=== PATIENT | male | born 1960 | race Two or more races ===

== ENCOUNTER 2024-03-24 16:46 | Inpatient (IN) | payer OTHER ==
[2024-03-24] MEDS ORDERED: FAMOTIDINE 20 MG/2 ML VIAL IV ONE (17:26)
[2024-03-24] MEDS ORDERED: ONDANSETRON 4 MG/2 ML VIAL ONE (17:26)
[2024-03-24 17:36] LABS: Absolute Basophils 0.1 K/uL (0-0.5); Absolute Eosinophils 0.1 K/uL (0-0.5); Absolute Lymphocytes (CBC) 2.2 K/uL (0.7-4.9); Absolute Monocytes 0.7 K/uL (0.1-1.3); Basophils % 0.4 % (0-1.3); Hematocrit 41.7 % (39.6-49.0); Hemoglobin 13.9 g/dL (13.6-17.9); Lymphocytes % 16.8 % (15.3-44.8); MCH 29.3 pg (27.0-35.0); MCHC 33.3 g/dL (32.0-36.0); Neutrophils % 76.8 % (41.7-73.7); Nucleated Red Blood Cells % 0.1 % (0-0); Platelets 224 thou/uL (152-406); RBC Red Blood Cell Count 4.74 M/uL (4.33-5.43); Red Cell Distribution Width 12.6 % (12.1-15.2)
[2024-03-24 17:48] LABS: PT Prothrombin Time 12.5 SECONDS (9.4-12.5); Protime INR 1.14
[2024-03-24 17:50] LABS: ALT/SGPT 21 U/L (16-61); AST/SGOT 15 U/L (15-37); Albumin 3.6 g/dL (3.4-5.0); Albumin/Globulin Ratio 1.1 (1.1-1.8); Alkaline Phosphatase 80 U/L (45-117); Anion Gap 11.3 mEq/L (5.0-15.0); BUN Blood Urea Nitrogen 13 mg/dL (7-18); Bicarbonate 24 mEq/L (21-32); Bilirubin Total 0.3 mg/dL (0.2-1.0); Globulin 3.4 g/dL (2.3-3.5); Glomerular Filtration Rate 97 ml/min (=/>90); Glucose Level 327 mg/dL (74-106); Magnesium 1.9 mg/dL (1.6-2.4); Potassium 3.3 mEq/L (3.5-5.1); Sodium Level 138 mEq/L (136-145); Troponin High Sensitivity 4.4 pg/mL (<58.9)
[2024-03-24 17:51] LABS: Bilirubin Direct < 0.2 mg/dL (0-0.2); Bilirubin Indirect, Calculated 0.1 mg/dL (0.2-0.8)
[2024-03-24] MEDS ORDERED: HYDRALAZINE HCL 20 MG/ML VIAL ONE (18:25)
[2024-03-24] MEDS ORDERED: POTASSIUM 25 MEQ EFFERV TAB ONE (18:26)
[2024-03-24] MEDS ORDERED: INSULIN REGULAR (HUMAN) 100 UNIT/ML ONE (18:27)
--- NOTE | 2024-03-24 19:21 | RAD REPORT ---
EXAM DESCRIPTION: [place] Single View03/24/2024 6:07 pm CLINICAL HISTORY: Chest pain COMPARISON: none FINDINGS: The lungs appear clear of acute infiltrate. The heart is normal size IMPRESSION: No acute abnormalities displayed
--- NOTE | 2024-03-24 19:23 | RAD REPORT ---
EXAM DESCRIPTION: CT - Head Brain Wo Cont - 03/24/2024 7:02 pm CLINICAL HISTORY: Dizziness COMPARISON: None TECHNIQUE: Computed axial tomography of the head was obtained. IV contrast was not requested. All CT scans are performed using dose optimization technique as appropriate and may include automated exposure control or mA/KV adjustment according to patient size. FINDINGS: An intracranial bleed is not seen Mild prominence of ventricles. Cerebral atrophy present No extra-axial fluid collection is noted. No significant hypodensity the brain. Fluid within the sinuses/ mastoids is not seen. IMPRESSION: Mild prominence of the ventricles probably related to atrophy. Normal pressure hydroceph alus although possible is considered less likely and should be correlated clinically If patient's symptoms persist MRI of the brain would be recommended
[2024-03-24] MEDS ORDERED: DIPHENHYDRAMINE 50 MG/ML VIAL ONE (19:27)
[2024-03-24] MEDS ORDERED: NA CHLORIDE 0.9% 1,000 ML ONE (19:27)
[2024-03-24] MEDS ORDERED: NA CHLORIDE 0.9% 50 ML ONE (19:27)
[2024-03-24] MEDS ORDERED: METOCLOPRAMIDE 10 MG/2mL INJ ONE (19:27)
[2024-03-24 20:53] LABS: Specific Gravity 1.012 (1.005-1.030); Sqamous Epithelial None Seen /HPF (None Seen); Urine Bacteria None Seen /HPF (<20); Urine Bilirubin NEGATIVE (Negative); Urine Blood Negative (Negative); Urine Clarity Clear (Clear); Urine Color Colorless (Yellow); Urine Culture Reflex Order NOT NEEDED; Urine Glucose 4+ (Over) (Negative); Urine Ketones 2+ (Negative); Urine Microscopic Reflex YN ORDER UMIC; Urine Nitrite NEGATIVE (Negative); Urine Protein TRACE (Negative); Urine RBC <5 /HPF (None Seen); Urine Urobilinogen Normal (Normal); Urine WBC <5 /HPF (<5); Urine pH 7.5 (5.0-7.0)
[2024-03-24] MEDS ORDERED: MECLIZINE HCL 12.5 MG TAB ONE (20:53)
--- NOTE | 2024-03-24 22:29 | ER ---
Nurse's Notes [facility] Name: Zohaib Trevino Age: 63 yrs Sex: Male : 1960 Arrival Date: 03/24/2024 Time: 16:46 Bed 15 Private MD: Diagnosis: Dizziness and giddiness;Nausea with vomiting, unspecified Presentation: 03/24 17:14 Chief complaint: Patient states: Pt had sudden onset of dizziness, nausea and vomiting tl4 following a routine tooth extraction at dental office. Pt denies any history of adverse reactions to dental pain/sedation medications. Coronavirus screen: At this time, the client does not indicate any symptoms associated with coronavirus-19. Ebola Screen: No symptoms or risks identified at this time. Initial Sepsis Screen: Does the patient meet any 2 criteria? No. Patient's initial sepsis screen is negative. Does the patient have a suspected source of infection? No. Patient's initial sepsis screen is negative. Risk Assessment: Do you want to hurt yourself or someone else? Patient reports no desire to harm self or others. Onset of symptoms was March 24, 2024 at 15:30. 17:14 Method Of Arrival: EMS: [facility] tl4 17:14 Acuity: BATOOL 3 tl4 Triage Assessment: 17:19 General: Appears ill, Behavior is cooperative, flat. Pain: Denies pain. EENT: No signs tl4 and/or symptoms were reported regarding the EENT system. Neuro: Level of Consciousness is awake, obeys commands, lethargic, Oriented to person, place, time, situation, Moves all extremities. Full function Speech is normal. Neuro: Reports dizziness. Cardiovascular: Denies chest pain, palpitations, shortness of breath, Capillary refill < 3 seconds Patient's skin is warm and dry. Respiratory: Airway is patent Respiratory effort is even, unlabored, Respiratory pattern is regular, symmetrical, Breath sounds are clear bilaterally. GI: Reports nausea, vomiting. : No signs and/or symptoms were reported regarding the genitourinary system. Derm: No signs and/or symptoms reported regarding the dermatologic system. Musculoskeletal: No signs and/or symptoms reported regarding the musculoskeletal system. Historical: - Allergies: 17:17 No Known Allergies; tl4 - Home Meds: 17:17 Metformin Oral [Active]; tl4 - PMHx: 17:17 Diabetes mellitus; Hypertensive disorder; Chronic obstructive lung disease; Atrial tl4 fibrillation; - Immunization history:: Adult Immunizations unknown. - Infectious Disease History:: Denies. - Social history:: Smoking status: Patient/guardian denies using tobacco, the patient reports quitting approximately 18 years ago. Screenin:46 [facility] ED Fall Risk Assessment (Adult) History of falling in the last 3 months, nj1 including since admission No falls in past 3 months (0 pts) Confusion or Disorientation No (0 pts) Intoxicated or Sedated No (0 pts) Impaired Gait No (0 pts) Mobility Assist Device Used No (0 pt) Altered Elimination No (0 pt) Score/Fall Risk Level 0 - 2 = Low Risk Oriented to surroundings, Maintained a safe environment, Hourly rounding (assess needs \T\ fall precautionary measures) done. Abuse screen: Denies threats or abuse. Denies injuries from another. Nutritional screening: No deficits noted. Tuberculosis screening: No symptoms or risk factors identified. Assessment: 17:30 General: Appears ill, Behavior is drowsy, flat. Neuro: Reports dizziness. nj1 17:30 Cardiovascular: Patient's skin is warm and dry. Cardiovascular: Rhythm is sinus rhythm. nj1 Respiratory: Airway is patent Respiratory effort is even, unlabored. GI: Reports nausea. 17:49 Reassessment: Patient appears in no apparent distress at this time. No changes from [facility] previously documented assessment. 18:42 Reassessment: Patient appears in no apparent distress at this time. Patient and/or oh1 family updated on plan of care and expected duration. Pain level reassessed. Patient is alert, oriented x 3, equal unlabored respirations, skin warm/dry/pink. 20:03 Reassessment: Patient appears in no apparent distress at this time. Patient and/or nj1 family updated on plan of care and expected duration. Pain level reassessed. Patient is alert, oriented x 3, equal unlabored respirations, skin warm/dry/pink. 21:12 General: Appears in no apparent distress. ill, Behavior is calm, cooperative, drowsy, kd3 flat. Neuro: Level of Consciousness is awake, alert, obeys commands, Oriented to person, place, time, situation. Respiratory: Airway is patent Trachea midline Respiratory effort is even, unlabored, Respiratory pattern is regular, symmetrical. 21:58 General: Attempted to ambulate patient. PT is extremely unstable and is unable to kd3 ambulate. As soon as the patient sat up to the side of the bed. Pt began to vomit. provider notified. . 22:44 General: [id number] Obdulia Trevino -'s number . kd3 23:43 General: Pt cleaned of incontinence, sheets changed, fresh warm blankets and gown kd3 provided. Pt repeat troponin and covid swab collected and sent. Pt placed back on continuous monitoring. Pt taken to CT via stretcher. Report sent to the floor. . Vital Signs: 17:14 BP 198 / 87; Pulse 79; Resp 19; Temp 97.5(O); Pulse Ox 98% on R/A; Weight 63.5 kg; tl4 Height 5 ft. 8 in. ; Pain 0/10; 17:48 BP 189 / 83; Pulse 83; Resp 22; Pulse Ox 97% on R/A; nj1 18:42 BP 146 / 87; Pulse 77; Resp 17; Pulse Ox 98% on R/A; nj1 20:03 BP 181 / 89; Pulse 82; Resp 19; Pulse Ox 100% on R/A; nj1 21:12 BP 174 / 84; Pulse 79; Resp 18; Pulse Ox 99% on R/A; kd3 22:45 BP 170 / 81; Pulse 63; Resp 19; Pulse Ox 99% on R/A; kd3 23:42 BP 163 / 80; Pulse 76; Resp 16; Pulse Ox 98% on R/A; kd3 17:14 Body Mass Index 21.29 (63.50 kg, 172.72 cm) tl4 17:14 Pain Scale: Adult tl4 ED Course: 16:49 Patient arrived in ED. ec2 16:49 Shahab Contreras PA is PHCP. cp 16:49 Ovidio Das MD is Attending Physician. cp 16:59 Юлия Kitchen, TIN is Primary Nurse. nj1 17:12 Initial lab(s) drawn, by ED staff, sent to lab. EKG done, by ED staff, reviewed by tl4 Shahab RIOS. 17:13 Maintain EMS IV. Dressing intact. Good blood return noted. Site clean \T\ dry. Gauge \T\ tl 4 site: 20g left forearm. IV is patent, with fluids infusing freely, with good blood return, Flushed left forearm 10 mL NS. 17:17 Triage completed. tl4 17:22 Arm band placed on right wrist. tl4 17:47 Patient has correct armband on for positive identification. Bed in low position. Call nj1 light in reach. Provided Education on: CALL LIGHT, FALL PRECAUTIONS. 18:09 XRAY Chest (1 view) In Process Unspecified. EDMS 19:04 CT Head Brain wo Cont In Process Unspecified. EDMS 19:55 Report given to Niurka CASTLE. nj1 22:27 Tom Villa MD is Hospitalizing Provider. cp 23:42 Thyroid Stimulating Hormone Sent. kd3 23:42 Troponin High Sensitivity Sent. kd3 23:44 Repeat lab(s) drawn. by me, sent to lab. COVID swab sent to lab. kd3 Administered Medications: 17:34 Drug: Famotidine IVP 20 mg IVP once; dilute with 10 mL 0.9% NaCl; give over 2 minutes kj2 Route: IVP; Site: left antecubital; 17:36 Drug: Ondansetron IVP 4 mg IVP once; over 2 minutes Route: IVP; Site: left antecubital; kj2 18:45 Drug: Insulin Regular Human Sub-Q 10 units Sub-Q once {Co-Signature: kc6 (rodríguez Canales RN).} Route: Sub-Q; Site: right lower abdomen; 18:48 Drug: Potassium PO Effervescent Tablet 50 mEq PO once; dissolve in 4 ounces of water or nj1 juice Route: PO; 19:14 Not Given (Physician Discretion): [id number] mg IVP once cp 19:36 Drug: NS 0.9% IV 1000 ml IV at 999 ml/hr Per protocol; 1000 mL bolus Route: IV; Rate: kd3 999 ml/hr; Site: left antecubital; 19:36 Drug: metoCLOPramide IVP 10 mg IVP once; over 1 to 2 minutes Route: IVP; Site: left kd3 antecubital; 19:37 Drug: diphenhydrAMINE IVP 12.5 mg IVP once Route: IVP; Site: left antecubital; kd3 20:58 Drug: Meclizine PO 25 mg PO once Route: PO; kj2 Medication: 21:12 VIS not applicable for this client. kd3 Outcome: 22:28 Decision to Hospitalize by Provider. abdirahman 03/25 00:54 Patient left the ED. kd3 Signatures: Dispatcher [employer] EDShahab Pereyra PA PA cp Doucette, Kyli, RN RN kd3 Юлия Kitchen RN RN nj1 Ovidio Das MD MD ec2 Jeremy Newell RN RN tl4 Blanca Dennis RN RN kj2 Tamika Canales RN kc6 Corrections: (The following items were deleted from the chart) 03/24 20:03 20:03 Pulse 82bpm; Resp 19bpm; Pulse Ox 100% RA; nj1 nj1
--- NOTE | 2024-03-24 22:29 | EDPHYS ---
Physician Documentation [facility] Name: Zohaib Trevino Age: 63 yrs Sex: Male : 1960 Arrival Date: 03/24/2024 Time: 16:46 Bed 15 Private MD: ED Physician Ovidio Das HPI: 03/24 17:15 This 63 yrs old [place] Male presents to ER via EMS with complaints of Dizziness, cp Nausea. 17:15 The patient presents to the emergency department with Patient is a 63-year-old male who cp presents to the emergency department via EMS after reportedly having sudden onset nausea vomiting while at the dentist office today. Patient reportedly had a tooth extracted and started vomiting. Patient complains of dizziness and chest pain. 17:15 Onset: The symptoms/episode began/occurred suddenly, just prior to arrival. Associated cp signs and symptoms: Pertinent negatives: fever, syncope. Historical: - Allergies: 17:17 No Known Allergies; tl4 - Home Meds: 17:17 Metformin Oral [Active]; tl4 - PMHx: 17:17 Diabetes mellitus; Hypertensive disorder; Chronic obstructive lung disease; Atrial tl4 fibrillation; - Immunization history:: Adult Immunizations unknown. - Infectious Disease History:: Denies. - Social history:: Smoking status: Patient/guardian denies using tobacco, the patient reports quitting approximately 18 years ago. ROS: 17:20 Constitutional: Negative for body aches, chills, fever, cp 17:20 Eyes: Negative for injury, pain, redness, and discharge, cp 17:20 ENT: Negative for drainage from ear(s), ear pain, 17:20 Cardiovascular: Positive for chest pain, 17:20 Respiratory: Negative for cough, shortness of breath, wheezing, 17:20 Abdomen/GI: Positive for nausea and vomiting, Negative for hematemesis, 17:20 Neuro: Positive for dizziness, weakness, Negative for headache, syncope, 17:20 All other systems are negative, Exam: 16:59 ECG was reviewed by the Attending Physician. cp 17:25 Constitutional: The patient appears in no acute distress, alert, awake, cp non-diaphoretic, non-toxic, well developed, well nourished, 17:25 Head/Face: Normocephalic, atraumatic. cp 17:25 Eyes: Periorbital structures: appear normal, Pupils: equal, round, and reactive to light and accomodation, Sclera: no appreciated abnormality, Lids and lashes: appear normal, bilaterally, 17:25 ENT: External ear(s): are unremarkable, Nose: is normal, Mouth: Lips: moist, Oral mucosa: moist, Posterior pharynx: Airway: no evidence of obstruction, patent, 17:25 Chest/axilla: Inspection: normal, 17:25 Cardiovascular: Rate: normal, Rhythm: regular, 17:25 Respiratory: the patient does not display signs of respiratory distress, Respirations: normal, no use of accessory muscles, no retractions, labored breathing, is not present, Breath sounds: are clear throughout, no decreased breath sounds, no stridor, no wheezing, 17:25 Abdomen/GI: Inspection: abdomen appears normal, Palpation: abdomen is soft and non-tender, in all quadrants, 17:25 Neuro: Orientation: to person, place \T\ time. Mentation: able to follow commands, Motor: moves all fours, no focal deficits, Vital Signs: 17:14 BP 198 / 87; Pulse 79; Resp 19; Temp 97.5(O); Pulse Ox 98% on R/A; Weight 63.5 kg; tl4 Height 5 ft. 8 in. ; Pain 0/10; 17:48 BP 189 / 83; Pulse 83; Resp 22; Pulse Ox 97% on R/A; nj1 18:42 BP 146 / 87; Pulse 77; Resp 17; Pulse Ox 98% on R/A; nj1 20:03 BP 181 / 89; Pulse 82; Resp 19; Pulse Ox 100% on R/A; nj1 21:12 BP 174 / 84; Pulse 79; Resp 18; Pulse Ox 99% on R/A; kd3 22:45 BP 170 / 81; Pulse 63; Resp 19; Pulse Ox 99% on R/A; kd3 23:42 BP 163 / 80; Pulse 76; Resp 16; Pulse Ox 98% on R/A; kd3 17:14 Body Mass Index 21.29 (63.50 kg, 172.72 cm) tl4 17:14 Pain Scale: Adult tl4 MDM: 22:28 Patient medically screened. cp 22:30 Data reviewed: vital signs, nurses notes, lab test result(s), EKG, radiologic studies, cp CT scan. 22:30 Differential diagnosis: CVA, vertigo, acute AR. Consideration of Admission/Observation cp Patient was admitted/placed on observation. patient continues to have dizziness and is unsteady when ambulating. I considered the following discharge prescriptions or medication management in the emergency department Medications were administered in the Emergency Department. See MAR. Care significantly affected by the following chronic conditions: Diabetes, Hypertension, Chronic Obstructive Pulmonary Disease. Counseling: I had a detailed discussion with the patient and/or guardian regarding the historical points, exam findings, and any diagnostic results supporting the discharge/admit diagnosis, the presence of at least one elevated blood pressure reading (>120/80) during this emergency department visit, lab results, radiology results, the need for further work-up and treatment in the hospital. Response to treatment: the patient's symptoms have mildly improved after treatment. 03/24 17:09 Order name: Basic Metabolic Panel; Complete Time: 17:52 03/24 17:52 Interpretation: Normal except: K 3.3; GLUC 327. 03/24 17:09 Order name: CBC with Diff; Complete Time: 17:52 03/24 19:56 Interpretation: Normal except: WBC 13.10; DILLAN% 76.8; NEUT A 10.0. 03/24 17:09 Order name: LFT's; Complete Time: 17:52 03/24 19:57 Interpretation: Normal except: IBILI, CALC 0.1. 03/24 17:09 Order name: Magnesium; Complete Time: 17:52 03/24 17:09 Order name: PT-INR; Complete Time: 17:52 03/24 17:09 Order name: Troponin HS; Complete Time: 17:52 03/24 19:59 Order name: Urinalysis w/ reflexes; Complete Time: 20:55 cp 03/24 20:55 Interpretation: Normal except: UGLUC 4+ (Over); UKET 2+; UPH 7.5; UPROT TRACE. 03/24 21:16 Order name: Glucose, Ancillary Testing; Complete Time: 21:17 EDMS 03/24 22:03 Order name: Troponin High Sensitivity 03/24 22:42 Order name: COVID-19/FLU A+B/RSV EDMS 03/24 22:42 Order name: Thyroid Stimulating Hormone EDUT 03/24 22:56 Order name: CBC with Automated Diff EDMS 03/24 22:56 Order name: CBC with Automated Diff EDMS 03/24 22:56 Order name: Comprehensive Metabolic Panel EDUT 03/24 22:56 Order name: Comprehensive Metabolic Panel EDUT 03/24 22:56 Order name: Lipid Profile EDUT 03/24 22:56 Order name: Lipid Profile EDUT 03/24 17:09 Order name: XRAY Chest (1 view); Complete Time: 19:30 cp 03/24 17:54 Order name: CT Head Brain wo Cont; Complete Time: 19:30 cp 03/24 22:02 Order name: CT Neck Angio 03/24 22:39 Order name: Head angio EDUT 03/24 17:09 Order name: EKG; Complete Time: 17:10 cp 03/24 17:09 Order name: Cardiac monitoring; Complete Time: 17:12 cp 03/24 17:09 Order name: EKG - Nurse/Tech; Complete Time: 17:12 cp 03/24 17:09 Order name: IV Saline Lock; Complete Time: 17:12 cp 03/24 17:09 Order name: Labs collected and sent; Complete Time: 17:12 cp 03/24 17:09 Order name: O2 Per Protocol; Complete Time: 17:12 cp 03/24 17:09 Order name: O2 Sat Monitoring; Complete Time: 17:12 cp 03/24 20:56 Order name: Misc. Order: ambulate patient; Complete Time: 21:58 cp EC:59 Rate is 83 beats/min. Rhythm is regular. AR interval is prolonged at 218 msec. QRS cp interval is prolonged at 148 msec. QT interval is prolonged. T waves are Inverted in lead aVR. Interpreted by me. Reviewed by me. Administered Medications: 17:34 Drug: Famotidine IVP 20 mg IVP once; dilute with 10 mL 0.9% NaCl; give over 2 minutes kj2 Route: IVP; Site: left antecubital; 17:36 Drug: Ondansetron IVP 4 mg IVP once; over 2 minutes Route: IVP; Site: left antecubital; kj2 18:45 Drug: Insulin Regular Human Sub-Q 10 units Sub-Q once {Co-Signature: kc6 (Parker, aneudy1 Tamika CASTLE).} Route: Sub-Q; Site: right lower abdomen; 18:48 Drug: Potassium PO Effervescent Tablet 50 mEq PO once; dissolve in 4 ounces of water or nj1 juice Route: PO; 19:14 Not Given (Physician Discretion): [id number] mg IVP once cp 19:36 Drug: NS 0.9% IV 1000 ml IV at 999 ml/hr Per protocol; 1000 mL bolus Route: IV; Rate: kd3 999 ml/hr; Site: left antecubital; 19:36 Drug: metoCLOPramide IVP 10 mg IVP once; over 1 to 2 minutes Route: IVP; Site: left kd3 antecubital; 19:37 Drug: diphenhydrAMINE IVP 12.5 mg IVP once Route: IVP; Site: left antecubital; kd3 20:58 Drug: Meclizine PO 25 mg PO once Route: PO; kj2 Disposition Summary: 03/24/24 22:28 Hospitalization Ordered Notes: Hospitalization Status: Observation cp Provider: Tom Villa cp Location: Telemetry/MedSurg (observation) cp Condition: Stable cp Problem: new cp Symptoms: have improved cp Bed/Room Type: Standard cp Room Assignment: 221(03/24/24 23:11) [facility] Diagnosis - Dizziness and giddiness cp - Nausea with vomiting, unspecified cp Forms: - Medication Reconciliation Form cp - SBAR form cp - Leadership Thank You Letter cp Addendum: 03/30/2024 11:49 I was immediately available for consultation during this patient's visit. I did not e c2 personally see the patient or discuss the patient with the VALE. . Signatures: Dispatcher [employer] EDMS Shahab Contreras PA PA cp Doucette, Kyli, RN RN kd3 Юлия Kitchen RN RN nj1 Ovidio Das MD MD ec2 Soni Kaminski f Jeremy Newell RN RN tl4 Blanca Dennis RN RN kj2 Tamika Canales RN kc6 Corrections: (The following items were deleted from the chart) 03/24 17:10 17:09 BASIC METABOLIC PANEL+C.LAB.BRZ ordered. EDMS EDMS 17:10 17:09 CBC+H.LAB.BRZ ordered. EDMS EDMS 17:10 17:09 HEPATIC FUNCTION+C.LAB.BRZ ordered. EDMS EDMS : 17:09 MAGNESIUM+C.LAB.BRZ ordered. EDMS EDMS 17:09 PROTIME (+INR)+COAG.LAB.BRZ ordered. EDMS EDMS : 17:09 Troponin High Sensitivity+C.LAB.BRZ ordered. EDMS EDMS 23:11 22:28 cp kmf
[2024-03-24] MEDS ORDERED: LABETALOL 20 MG/4ML SYRINGE IV PRN (22:39)
[2024-03-24] MEDS ORDERED: MORPHINE 4 MG/ML SYR IV PRN (22:47)
[2024-03-24] MEDS ORDERED: ALBUTEROL 2.5 MG/3 ML NEB SOL NEB PRN (22:47)
--- NOTE | 2024-03-24 22:47 | P.HP ---
Certification for Inpatient Patient admitted to: Observation With expected LOS: <2 Midnights Patient will require the following post-hospital care: None Practitioner: I am a practitioner with admitting privileges, knowledge of patient current condition, hospital course, and medical plan of care. Services: Services provided to patient in accordance with Admission requirements found in Title 42 Section 412.3 of the Code of Federal Regulations Patient History Date of Service: 03/24/24 Reason for admission: Dizziness History of Present Illness: 61-year-old male with history of hypertension diabetes, COPD, A-fib, who presented to the hospital after developing intermittent dizziness and nausea, as well as vomiting today after going to his dentist office. Patient states he had a tooth extraction done. He is unsure what local anesthetic he was given. Postprocedure he initially felt fine but on getting home he developed onset of the intermittent dizziness. He states he feels unsteady. He denies any vertigo. Vomiting was nonbilious and nonbloody. He presented to the emergency room because of onset of symptoms. On arrival in the ED, EKG shows normal sinus rhythm with listed med changes, vital signs were stable with systolic blood pressure in the 180s over 110s, heart rate in the 70s to 80s, afebrile, satting well on room air. Chest x-ray shows no acute infiltrate, head CT shows: Mild prominence of the ventricles probably related to atrophy. Normal pressure hydrocephalus although possible is considered less likely and should be cor related clinically. Urinalysis unremarkable except for glycosuria, WBC elevated at 13,000 with 75% neutrophilia but no bands, BMP shows elevated glucose of 326, potassium of 3.2 creatinine normal at 0.8. Lactic acid was normal. Patient received Zofran as well as insulin in the ED. No blood pressure medication was given. Repeat blood pressure now elevated in the 190s over 110s. He has been admitted for persistent dizziness unresolving. Home medications list reviewed: No - Past Medical/Surgical History Has patient received pneumonia vaccine in the past: No -: Hypertension -: Diabetes mellitus -: COPD -: A-fib Past Surgical History: Reviewed- Non-Contributory - Family History Family History: Reviewed- Non-Contributory - Social History Smoking Status: Never smoker Smoking therapy provided: No Patient receptive to therapy: No Alcohol use: No CD- Drugs: No Caffeine use: No Place of Residence: Home Review of Systems General: Weakness Gastrointestinal: Nausea, Vomiting Neurological: Weakness Physical Examination - Physical Exam General: Alert, In no apparent distress, Oriented x3 HEENT: Atraumatic, Normocephalic, PERRLA Neck: 2+ carotid pulse no bruit, JVD not distended Respiratory: Clear to auscultation bilaterally, Normal air movement Cardiovascular: Normal pulses, Regular rate/rhythm, Normal S1 S2 Gastrointestinal: Normal bowel sounds, Soft and benign, Non-distended, No tenderness, No masses Musculoskeletal: No clubbing, No swelling Integumentary: No rashes, No breakdown, No significant lesion Neurological: Normal speech, Normal strength at 5/5 x4 extr, Sensation intact, Other (Gait not tested, horizontal nystagmus) External genitalia: No edema, No lesions - Studies Laboratory Data (last 24 hrs) 03/24/24 03/24/24 03/24/24 17:10 17:10 17:10 WBC 13.10 H Hgb 13.9 Hct 41.7 Plt Count 224 PT 12.5 INR 1.14 Sodium 138 Potassium 3.3 L BUN 13 Creatinine 0.89 Glucose 327 H Magnesium 1.9 Total Bilirubin 0.3 AST 15 ALT 21 Alkaline Phosphatase 80 Assessment and Plan - Problems (Diagnosis) (1) Dizziness and giddiness Current Visit: Yes Status: Acute - Plan Impression Persistent dizzinessmay be due to hypertensive urgency versus viral syndrome versus TIA Hypertensive urgencylikely causing dizziness and nausea DM with hyperglycemia History of COPDstable Leukocytosislikely reactive rule out viral infection Plan Will dose labetalol x 1 now for blood pressure control Admit to observation Obtain home meds and adjust for better blood pressure control Obtain MRI of the head in a.m. if the persistent dizziness after improved blood pressure May need neurology evaluation DM with leukocytosisstart gentle IV fluid, insulin sliding scale with Accu-Chek Resume home meds and adjust Leukocytosisunclear etiology, may be reactive Follow with gentle IV fluid Empirical antibiotics for now Obtain COVID and flu swab Full code Dispo possible hospital discharge in the last than 48 hours DVT prophylaxis subcutaneous Lovenox - Advance Directives Does patient have a Living Will: No Does patient have a Durable POA for Healthcare: No Physician Review: Patient Assessed, Agree with Above Assessment and Plan Time Spent Managing Pts Care (In Minutes): 70
[2024-03-25 00:13] LABS: INFLUENZA A NAA NEGATIVE (NEGATIVE); RESPIRATORY SYNCYTIAL VIR NAA NEGATIVE (NEGATIVE); SARS-COV-2 RT PCR NEGATIVE (NEGATIVE)
[2024-03-25 01:19] VITALS: O2SAT 98
[2024-03-25] MEDS: NS KCL 20MEQ 20 MEQ/1,000 ML BAG IV SCH (01:36)
[2024-03-25] MEDS: LABETALOL 20 MG/4ML SYRINGE IV ONE (02:07)
[2024-03-25 02:38] VITALS: BMI 22.5
[2024-03-25] MEDS: HYDRALAZINE HCL 20 MG/ML VIAL IV PRN (05:41)
[2024-03-25] MEDS: ENOXAPARIN 40 MG/0.4 ML SQ SCH (07:41)
[2024-03-25] MEDS: ONDANSETRON 4 MG/2 ML VIAL IV PRN (07:41)
[2024-03-25] MEDS: ASPIRIN EC 81 MG TAB PO SCH (07:41)
[2024-03-25 07:55] LABS: Absolute Lymphocytes (CBC) 2.6 K/uL (0.7-4.9); Absolute Monocytes 1.3 K/uL (0.1-1.3); Absolute Neutrophil 13.1 K/uL (1.8-8.0); Basophils % 0.3 % (0-1.3); Eosinophils % 0.3 % (0-4.4); Hematocrit 41.1 % (39.6-49.0); Hemoglobin 14.1 g/dL (13.6-17.9); MCH 29.6 pg (27.0-35.0); MCHC 34.4 g/dL (32.0-36.0); MCV 86.1 fL (80-100); MPV 9.2 fL (7.6-11.3); Monocytes % 7.6 % (3.3-12.3); Neutrophils % 76.8 % (41.7-73.7); Nucleated Red Blood Cells % 0.1 % (0-0); Platelets 221 thou/uL (152-406); RBC Red Blood Cell Count 4.78 M/uL (4.33-5.43); Red Cell Distribution Width 12.3 % (12.1-15.2)
[2024-03-25 08:08] LABS: Albumin 3.6 g/dL (3.4-5.0); Anion Gap 9.5 mEq/L (5.0-15.0); Bilirubin Total 0.5 mg/dL (0.2-1.0); Globulin 3.5 g/dL (2.3-3.5); Potassium 3.5 mEq/L (3.5-5.1); Protein, Total 7.1 g/dL (6.4-8.2)
--- NOTE | 2024-03-25 08:26 | P.PN ---
Date of Service: 03/25/24 Subjective: Had tooth extraction yesterday for infected tooth. Reports dizziness with nausea/vomiting since extraction denies prior issues/complications from past tooth extractions reports he was able to urinate without issues throughout the day yesterday dizziness/vomiting worsened with movement and turning head to left unable to walk due to diziness ROS: 10 point ROS as noted above, otherwise negative Physical Exam: GEN: Alert, oriented, NAD HEENT: Normal conjunctiva, sclera anicteric, PERRL CV: Regular rate and rhythm, no edema Pulm: Nonlabored respirations on room air, clear bilaterally ABD: soft, nontender, nondistended Neuro: normal speech, normal affect, diziness wth turning head Problem List: Persistent dizziness with nausea/vomiting s/p recent tooth extraction (03/24) Leukocytosis Hypertensive urgency Paroxysmal A-fib NIDDM2 with hyperglycemia COPD, chronic hx vertigo Persistent dizziness with nausea/vomiting s/p recent tooth extraction (03/24) Leukocytosis Had tooth extraction yesterday for an infected tooth. Reports dizziness with nausea/vomiting since tooth extraction - worsened with movement and turning head to left Unclear etiology, ?possibly secondary to peripheral vertigo related to positioning Given 1 week prescription for clindamycin on 03/19 - reports today was day 7 has history of vertigo but patient feels symptoms are different this time. CTA head/neck (03/24): moderate atherosclerosis with apox 50% stenosis of proximal internal carotid arteries bilaterally. Moderate focal stenosis of right P2 segment. No large vessel occlusion CT head (03/24): Mild prominence of the ventricles probably related to atrophy MRI ordered to further eval, r/o CVA Neuro consult recommends trial of meclizine; added 03/25 leukocytosis 13.1 -> 17.1 (03/25) unclear etiology of leukocytosis. Possibly reactive from recent procedure vs medication side effect from numbing agent vs secondary to infection although less likely CXR clear, urinalysis unremarkable pain control Hypertensive urgency confirm home meds, restart as appropriate PRN hydralazine / labetalol Paroxysmal A-fib Diagnosed with a-fib ~3 years ago. Reports last episode of a-fib was ~2 years ago. stopped taking metoprolol / xarelto on his own months ago per patient. Start metoprolol 25 mg BID, restart xarelto NIDDM2 with hyperglycemia accu-checks, SSI COPD, chronic confirm home meds, restart as appropriate VTE: Lovenox Code: Full Dispo: Home, ~1-2 days Pending MRI / neuro recs
[2024-03-25] MEDS: METOPROLOL XL 25 MG TAB PO SCH (08:31)
[2024-03-25] MEDS: MECLIZINE HCL 12.5 MG TAB PO SCH (09:41)
[2024-03-25] MEDS: INSULIN REGULAR (HUMAN) 100 UNIT/ML SQ SCH ×3 (11:30→21:00)
--- NOTE | 2024-03-25 11:30 | CON ---
Date of Consultation: 03/25/2024 Time Of Service: 9:10 a.m. Chief Complaint: Severe nausea and vomiting. History Of Present Illness: Mr. Trevino is a 63-year-old patient with hypertension, diabetes mellitus, COPD, atrial fibrillation, who was at the dentist's office, had an extraction done and of course rece ived local anesthetic. Postoperatively immediately, he felt fine. However, on getting home, he deve loped sudden onset of severe dizziness with nausea. Whenever he would turn his head to the right, he had violent nausea with vomiting and was unable to mobilize due to the vomiting. Emergency service was summoned and he arrived to the ED. His EKG showed he was in sinus rhythm. He has vital signs st able; however, systolics were over 180s and diastolics in the 110s, heart rate 70 to 80. He is afebr ile. However, his white blood cell count was elevated, eventually it was 17,100 and his electrolytes did not show significant abnormalities. Blood sugars ranged up to 260, sodium 135. Liver function study is unremarkable. His head CT scan showed no acute intracranial abnormalities. CT angiogram of his head showed some chronic findings, less than 50% stenosis in the internal carotid arteries. MRI of his brain is pending. His posterior circulation does show a T2 mild narrowing. The patient did receive intravenous Zofran 4 mg as needed and Reglan along with meclizine, labetalol for blood pressu re control, received IV fluids, potassium replacement for his electrolyte derangement, and DVT prophy laxis along with Lovenox, aspirin for stroke risk reduction. At the time of my evaluation, patient w as lying on the right side. He was remaining very still, but would hold the finger up to indicate wh ere he was responding and both upper and lower extremities were moving symmetrically. The patient wa s in the right lateral position. If he turned to his left, it elicited significant nausea and vomiti ng, however, was somewhat better than at the onset. He has brain MRI pending. The case was discusse d with Dr. Johnson and the most likely etiology is a peripheral vertigo related to the position while zachary ramirez was in the dentist's chair having the extraction. He does have a history of vertigo, but not as se caryn. No history of stroke. Past Medical History: As noted above. Surgeries: Noncontributory. Family History: Noncontributory. Social History: No alcohol, tobacco, or IV drug use. Medications: Reviewed. Review of Systems: Significant for nausea, vomiting upon turning to the left. No myalgias, arthralgias. No rash. No h eadache. No active psychiatric issues. No gastrointestinal or genitourinary issues. Physical Examination: Vital Signs: Blood pressure 170/68, pulse 80, respiratory rate 18, temperature 97.5, oxygen 99%. General: Mr. Trevino again is resting on the right side. HEENT: He is normocephalic, atraumatic. Sclerae anicteric. Oropharynx is pink and moist. Neck: Supple. Chest: Clear. Heart: Regular. Extremities: Show no significant clubbing, cyanosis, or edema. Neuro: If he turns to the left, again significant nausea, vomiting, and he is at this point not ash g to be moved unless he is going to have the José Luis maneuver done and receive IV Zofran along with mec lizine. He has no focal motor deficits. He is able to equally move upper and lower extremities prox imally, distally. Sensation is intact proximally, distally. Coordination is intact in upper and low er extremities. Symmetric reflexes. Assessment And Plan: Mr. Trevino is a 63-year-old patient with history of vertigo, who was at the [facility]'s office, had an extraction, and has had severe vertigo, potentially related to peripheral vestibu lar disorder. His neurological examination does not show central or focal neurological deficits. Br ain MRI is pending. Head CT scan, so far negative. He does have elevated white count and should be ruled out for any systemic infection, perhaps procalcitonin and lactic acid. He does have a chest x- ray that was done yesterday. Perhaps a repeat chest x-ray may be indicated. That chest x-ray showed no acute abnormalities. Given the nausea and vomiting has a potential for him to have aspiration, a n aspiration pneumonia should be ruled out. His comorbid conditions should of course continue. He d oes have the elevated blood pressure, which may potentially reflect autonomic changes after a posteri or circulation stroke, so that obviously should be ruled out with an MRI, which is currently being or dered. He will be followed while in hospital for any additional development and this case was discus sed with Dr. Johnson. PAUL/EILEEN Voice ID: [id number] Report ID: [id number]
--- NOTE | 2024-03-25 11:50 | RAD REPORT ---
EXAM DESCRIPTION: MRI - Brain Wo Cont - 03/25/2024 10:37 am CLINICAL HISTORY: r/o CVA, n/v, dizziness COMPARISON: Head Brain Wo Cont dated 03/24/2024 TECHNIQUE: Sagittal T1-weighted images were obtained along with PD/heavily T2-weighted and T2-FLAIR images. Axial DWI and ADC mapping sequences were also obtained along with coronal heavily T2-weighted images were obtained. FINDINGS: No intracranial hemorrhage, mass or acute infarction. There is no edema or shift of midlin e structures. No extra-axial fluid collections. Signal voids are seen as a normal finding in the ridge r intracranial vessels. Mild T2/FLAIR hyperintense signal foci within the periventricular deep white matter. Gyral susceptibility artifact at the right parietal lobe without corresponding hypodensity on CT may reflect sequela of remote hemorrhage. Cerebral atrophy. Mastoid air cells and paranasal sinuses are clear. IMPRESSION: No acute intracranial abnormality. Specifically, no evidence of acute infarct. Mild nons pecific periventricular T2/FLAIR hyperintensity typically attributable to mild chronic small vessel i schemic changes. Gyral susceptibility artifact at the right parietal region likely sequela of a remot e hemorrhagic insult.
--- NOTE | 2024-03-25 13:46 | RAD REPORT ---
EXAM DESCRIPTION: CT - Neck Angio - 03/25/2024 6:48 am CLINICAL HISTORY: 63 years Male; dizziness; Bed Name: 15 TECHNIQUE: CT angiogram of the head and neck using intravenous contrast.. MIP reconstructions were p erformed. Stenosis measurements performed using NASCET criteria. All CT scans at this facility use dose modulation, iterative reconstruction, and/or weight based dosi ng when appropriate to reduce radiation dose to as low as reasonably achievable. COMPARISON: None. FINDINGS: Neck: Right carotid: Moderate atherosclerosis with approximately 50% stenosis of the proximal internal vieyra tid artery Left carotid: Moderate atherosclerosis with approximately 50% stenosis of the proximal internal carot id artery Right vertebral: No focal stenosis or intraluminal filling defects. Left vertebral: No focal stenosis or intraluminal filling defects. No cervical mass or adenopathy. Head: ICA: patent Vertebrals: patent Basilar: patent ADMINISTRATIVE ACCOUNTANT: Moderate focal stenosis of the right P2 segment. Patent bilaterally. Posterior communicating arteries: patent Anterior communicating artery: patent COLLINS: patent bilaterally MCA: patent bilaterally No aneurysm. No intra-arterial filling defects. Andrade matter enhancement is symmetric. No filling defects in the major dural venous sinuses. IMPRESSION: 1. Moderate atherosclerosis with approximately 50% stenosis of the proximal internal c arotid arteries bilaterally. 2. Moderate focal stenosis of the right P2 segment. 3. No acute intracranial large vessel occlusion. Consider MRI with diffusion-weighted imaging if persistent clinical concern for acute infarct Electronically signed by: Bright Noble MD 03/25/2024 12:32 AM CDT RP Workstation: [id number] Due to temporary technical issues with the PACS/Fluency reporting system, reports are being signed by the in house radiologist without review as a courtesy to ensure prompt reporting. The interpreting r adiologist is fully responsible for the content of the report.
--- NOTE | 2024-03-25 14:22 | RAD REPORT ---
EXAM DESCRIPTION: CT - Head angio - 03/25/2024 6:48 am CLINICAL HISTORY: 63 years Male; dizziness; Bed Name: 15 TECHNIQUE: CT angiogram of the head and neck using intravenous contrast.. MIP reconstructions were p erformed. Stenosis measurements performed using NASCET criteria. All CT scans at this facility use dose modulation, iterative reconstruction, and/or weight based dosi ng when appropriate to reduce radiation dose to as low as reasonably achievable. COMPARISON: None. FINDINGS: Neck: Right carotid: Moderate atherosclerosis with approximately 50% stenosis of the proximal internal vieyra tid artery Left carotid: Moderate atherosclerosis with approximately 50% stenosis of the proximal internal carot id artery Right vertebral: No focal stenosis or intraluminal filling defects. Left vertebral: No focal stenosis or intraluminal filling defects. No cervical mass or adenopathy. Head: ICA: patent Vertebrals: patent Basilar: patent DIRECTOR ADVERTISING: Moderate focal stenosis of the right P2 segment. Patent bilaterally. Posterior communicating arteries: patent Anterior communicating artery: patent COLLINS: patent bilaterally MCA: patent bilaterally No aneurysm. No intra-arterial filling defects. Andrade matter enhancement is symmetric. No filling defects in the major dural venous sinuses. IMPRESSION: 1. Moderate atherosclerosis with approximately 50% stenosis of the proximal internal c arotid arteries bilaterally. 2. Moderate focal stenosis of the right P2 segment. 3. No acute intracranial large vessel occlusion. Consider MRI with diffusion-weighted imaging if persistent clinical concern for acute infarct Electronically signed by: Bright Noble MD 03/25/2024 12:32 AM CDT RP [facility]station[id number] Due to temporary technical issues with the PACS/Fluency reporting system, reports are being signed by the in house radiologist without review as a courtesy to ensure prompt reporting. The interpreting r adiologist is fully responsible for the content of the report.
[2024-03-25] MEDS: ACETAMINOPHEN 500 MG TAB PO PRN (21:32)
[2024-03-26 07:13] LABS: Absolute Basophils 0.1 K/uL (0-0.5); Absolute Eosinophils 0.2 K/uL (0-0.5); Absolute Lymphocytes (CBC) 3.4 K/uL (0.7-4.9); Absolute Monocytes 1.1 K/uL (0.1-1.3); Absolute Neutrophil 6.9 K/uL (1.8-8.0); Basophils % 0.6 % (0-1.3); Eosinophils % 1.9 % (0-4.4); Hematocrit 42.3 % (39.6-49.0); Hemoglobin 14.4 g/dL (13.6-17.9); Lymphocytes % 29.1 % (15.3-44.8); MCH 29.7 pg (27.0-35.0); MCHC 34.1 g/dL (32.0-36.0); MPV 10.4 fL (7.6-11.3); Monocytes % 9.2 % (3.3-12.3); Neutrophils % 59.2 % (41.7-73.7); Nucleated RBC Absolute Count 0.1 (0-0); Nucleated Red Blood Cells % 0.8 % (0-0); Platelets 252 thou/uL (152-406); RBC Red Blood Cell Count 4.86 M/uL (4.33-5.43); Red Cell Distribution Width 12.1 % (12.1-15.2)
[2024-03-26 07:35] LABS: Albumin 3.2 g/dL (3.4-5.0); Albumin/Globulin Ratio 0.9 (1.1-1.8); Anion Gap 4.6 mEq/L (5.0-15.0); Bilirubin Total 0.6 mg/dL (0.2-1.0); Globulin 3.6 g/dL (2.3-3.5); Magnesium 1.9 mg/dL (1.6-2.4); Potassium 4.6 mEq/L (3.5-5.1); Protein, Total 6.8 g/dL (6.4-8.2)
[2024-03-26 08:26] LABS: Platelet Estimate ADEQ; White Blood Cell Scan OK (OK)
[2024-03-26 08:27] LABS: Blood Morphology Comment NOT SEEN (NOT SEEN); Platelets, Giant FEW PRESENT
--- NOTE | 2024-03-26 11:12 | P.PN ---
Date of Service: 03/26/24 Subjective: feels area around tooth extraction is more painful and swollen today continues with dizziness/nausea when turning head doesn't think meclizine has helped. Hasn't been able to get out of bed. tolerating food/PO now nausea limited to only when moving head / vertigo afebrile ROS: 10 point ROS as noted above, otherwise negative Physical Exam: GEN: Alert, oriented, NAD HEENT: Normal conjunctiva, sclera anicteric, PERRL CV: Regular rate and rhythm, no edema Pulm: Nonlabored respirations on room air, clear bilaterally ABD: soft, nontender, nondistended Neuro: normal speech, normal affect, dizziness with turning head Problem List: Persistent dizziness with nausea/vomiting; suspect secondary to peripheral vertigo s/p recent tooth extraction (03/24) Leukocytosis, reactive/resolved Hypertensive urgency Paroxysmal A-fib NIDDM2 with hyperglycemia COPD, chronic hx vertigo Persistent dizziness with nausea/vomiting; suspect secondary to peripheral vertigo s/p recent tooth extraction (03/24) Leukocytosis, reactive/resolved Had tooth extraction yesterday for an infected tooth. Patient states procedure took longer than expected with some complications as tooth had broken and wasn't typical. Reportedly also swallowed some of the anesthetic prior to the procedure. Reports dizziness with nausea/vomiting since tooth extraction - worsened with movement and turning head to left. Has history of vertigo but patient feels symptoms are different this time. Unclear etiology, ?suspect secondary to peripheral vertigo related to positioning. Nausea/vomiting possibly secondary to medication numbing agent from tooth extraction. CTA head/neck (03/24): moderate atherosclerosis with apox 50% stenosis of proximal internal carotid arteries bilaterally. Moderate focal stenosis of right P2 segment. No large vessel occlusion MRI (03/26): no acute CVA or intracranial abnormalities. Noted Gyral susceptibility artifact at the right parietal region likely sequela of a remote hemorrhagic insult Dr. Olguin, Neuro, was consulted recommended trial of meclizine; added 03/25; didn't help per patient will add prednisone, taper, and clonazepam unclear etiology of leukocytosis. Possibly reactive from recent procedure vs medication side effect from numbing agent vs secondary to infection although less likely completed ~6 days of clindamycin prior to admission (03/19-03/24) CXR clear, urinalysis unremarkable leukocytosis improving 17.1 -> 11.6 (03/26) restart clindamycin Hypertensive urgency confirm home meds, restart as appropriate Paroxysmal A-fib Diagnosed with a-fib ~3 years ago. Reports last episode of a-fib was ~2 years ago. stopped taking metoprolol / xarelto on his own months ago per patient. continue metoprolol 25 mg BID, restart xarelto NIDDM2 with hyperglycemia accu-checks, SSI COPD, chronic confirm home meds, restart as appropriate VTE: Lovenox Code: Full Dispo: Home, ~1-2 days
[2024-03-26] MEDS ORDERED: clonazePAM 0.5 MG TAB PO PRN (14:00)
[2024-03-26] MEDS: predniSONE 20 MG TAB PO ONE (14:43)
--- NOTE | 2024-03-26 16:09 | EKG ---
Test Date: 2024-03-24 Test Time: 16:53:25 Commodity Supervisor: FÉLIX MEASUREMENT RESULTS: Intervals: Rate: 83 VA: 218 QRSD: 148 QT: 466 QTc: 547 [place]: P: 60 VA: 218 QRS: -9 T: 41 INTERPRETIVE STATEMENTS: Sinus rhythm with 1st degree AV block with occasional premature ventricular complexes Nonspecific intraventricular block Abnormal ECG No previous ECG available for comparison Electronically Signed On 03-26-24 16:07:27 CDT by Ravinder Brennan
[2024-03-26] MEDS: IBUPROFEN 400 MG TAB PO PRN (21:01)
[2024-03-27 08:25] LABS: Absolute Basophils 0.1 K/uL (0-0.5); Absolute Eosinophils 0.1 K/uL (0-0.5); Absolute Lymphocytes (CBC) 3.2 K/uL (0.7-4.9); Absolute Monocytes 1.2 K/uL (0.1-1.3); Absolute Neutrophil 7.7 K/uL (1.8-8.0); Basophils % 0.5 % (0-1.3); Eosinophils % 0.6 % (0-4.4); Hematocrit 41.8 % (39.6-49.0); Hemoglobin 13.7 g/dL (13.6-17.9); Lymphocytes % 26.3 % (15.3-44.8); MCH 28.9 pg (27.0-35.0); MCHC 32.9 g/dL (32.0-36.0); MCV 87.9 fL (80-100); MPV 10.1 fL (7.6-11.3); Monocytes % 9.5 % (3.3-12.3); Neutrophils % 63.1 % (41.7-73.7); Platelets 228 thou/uL (152-406); RBC Red Blood Cell Count 4.75 M/uL (4.33-5.43); Red Cell Distribution Width 12.2 % (12.1-15.2)
[2024-03-27 08:43] LABS: Anion Gap 7.9 mEq/L (5.0-15.0); Magnesium 1.9 mg/dL (1.6-2.4); Potassium 3.9 mEq/L (3.5-5.1)
[2024-03-27 08:46] VITALS: BP 160/78; TEMP 98.5
--- NOTE | 2024-03-27 09:04 | P.DS ---
Admission Date: 03/25/24 Discharge Date: 03/27/24 Disposition: ROUTINE DISCHARGE Discharge Condition: GOOD Reason for Admission: Dizziness Consultations: Neurology - Dr. Olguin Brief History of Present Illness: 61yo M, PMH: hypertension, NIDDM2 COPD, paroxysmal A-fib, vertigo, COPD Patient presented to the hospital after developing intermittent dizziness and nausea, as well as vomiting today after going to his dentist office. Patient states he had a tooth extraction done. He is unsure what local anesthetic he was given. Postprocedure he initially felt fine but on getting home he developed onset of the intermittent dizziness. He states he feels unsteady. He denies any vertigo. Vomiting was nonbilious and nonbloody. He presented to the emergency room because of onset of symptoms. On arrival in the ED, EKG shows normal sinus rhythm with listed med changes, vital signs were stable with systolic blood pressure in the 180s over 110s, heart rate in the 70s to 80s, afebrile, satting well on room air. Urinalysis unremarkable except for glycosuria, WBC elevated at 13,000 with 75% neutrophilia but no bands, BMP shows elevated glucose of 326, potassium of 3.2 creatinine normal at 0.8. Lactic acid was normal. Patient received Zofran as well as insulin in the ED. No blood pressure medication was given. Repeat blood pressure now elevated in the 190s over 110s. He has been admitted for persistent dizziness unresolving. Hospital Course: Problem List: Persistent dizziness secondary to peripheral vertigo Nausea/Vomiting likely secondary to ingested anesthetic s/p recent tooth extraction (03/24) Leukocytosis, reactive/resolved Hypertensive urgency Paroxysmal A-fib NIDDM2 with hyperglycemia COPD, chronic hx vertigo Physician discharge instructions: Patient presented with dizziness associated with nausea/vomiting following dental tooth extraction secondary to peripheral vertigo and possibly ingesting some local anesthetic. He reported inability to tolerate any PO secondary to vomiting after swallowing, and in addition, was having dizziness/vertigo with any movement of his head. He was able to tolerate PO within 24hrs of admission but continued with nausea and vertigo with any head movement. Neurology was consulted and felt this wast most typical/consistent with peripheral vertigo related to positioning during procedure. Patient reported swallowing some of the local anesthetic and developed nausea/vomiting in the recovery room, and this resolved within 24hrs of admission. CT head was negative for any acute findings. MRI was negative for acute CVA / acute process. 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 Patient was evaluated by Dr. Olguin, neurologist, who initially recommended trial of meclizine - however patient didn't feel like it helped. Dr. Olguin recommended trial of prednisone taper as some inflammation may be contributing. The following day, patient was feeling much better, sitting up without vertigo, eating without issue. Patient was deemed stable for discharge with 6 more days of prednisone taper. Patient was noted to have a mild leukocytosis this hospitalization. Suspect reactive from recent procedure vs medication side effect. No evidence of active infection. Advised to follow up with dentist for follow up after his procedure. Can finish off clindamycin prescription previously prescribed. During his hospitalization patient reportedly stopped taking his home metoprolol and xarelto on his own months ago. Counselled on importance on taking medications as prescribed unless otherwise told to by a physician to prevent further issues / complications. Advised to restart metoprolol and xarelto to which patient was agreeable to. Refills sent Medications: prednisone taper: 30 mg for 1 day, then 20 mg 2 days, then 10 mg for 3 days Refills sent for metoprolol 25 mg twice daily and xarelto 20 mg daily on discharge. Follow up: PCP 3-5 days Neurology 2-4 weeks Cardiology in 1-2 months Please call to schedule / confirm appointments Physical Exam: GEN: Alert, oriented, NAD HEENT: Normal conjunctiva, sclera anicteric, PERRL CV: Regular rate and rhythm, no edema Pulm: Nonlabored respirations on room air, clear bilaterally ABD: soft, nontender, nondistended MSK: no joint tenderness Integumentary: No rashes Neuro: normal speech, normal affect Vital Signs/Physical Exam: Temp Pulse Resp BP Pulse Ox 98.5 F 63 15 160/78 H 96 03/27/24 08:00 03/27/24 08:00 03/27/24 08:00 03/27/24 08:00 03/27/24 08:00 Laboratory Data at Discharge: WBC 12.10 thou/uL (4.3-10.9) H 03/27/24 08:13 Hgb 13.7 g/dL (13.6-17.9) 03/27/24 08:13 Hct 41.8 % (39.6-49.0) 03/27/24 08:13 Plt Count 228 thou/uL (152-406) 03/27/24 08:13 PT 12.5 SECONDS (9.4-12.5) 03/24/24 17:10 INR 1.14 03/24/24 17:10 Sodium 132 mEq/L (136-145) L 03/27/24 08:13 Potassium 3.9 mEq/L (3.5-5.1) D 03/27/24 08:13 BUN 10 mg/dL (7-18) 03/27/24 08:13 Creatinine 0.80 mg/dL (0.70-1.30) 03/27/24 08:13 Glucose 266 mg/dL (74-106) H 03/27/24 08:13 Magnesium 1.9 mg/dL (1.6-2.4) 03/27/24 08:13 Total Bilirubin 0.6 mg/dL (0.2-1.0) 03/26/24 06:35 AST 13 U/L (15-37) L 03/26/24 06:35 ALT 20 U/L (16-61) 03/26/24 06:35 Alkaline Phosphatase 85 U/L (45-117) 03/26/24 06:35 Triglycerides 155 mg/dL (<150) H 03/25/24 07:32 Cholesterol 199 mg/dL (<200) 03/25/24 07:32 HDL Cholesterol 43 mg/dL (40-60) 03/25/24 07:32 Cholesterol/HDL Ratio 4.63 03/25/24 07:32 Home Medications: Metformin ER [Glucophage ER*] 500 mg PO TID 03/25/24 Ibuprofen 800 mg PO Q6HP PRN 03/26/24 clindamycin HCL [Clindamycin HCl] 300 mg PO TID 03/26/24 Metoprolol Succinate [Toprol Xl*] 25 mg PO BID 30 Days #60 tab 03/27/24 Rivaroxaban [Xarelto] 20 mg PO DAILY 30 Days #30 tab 03/27/24 predniSONE [Deltasone*] 10 mg PO SEECOM 6 Days #10 tab 03/27/24 New Medications: predniSONE [Deltasone*] 10 mg PO SEECOM 6 Days #10 tab Metoprolol Succinate [Toprol Xl*] 25 mg PO BID 30 Days #60 tab Rivaroxaban [Xarelto] 20 mg PO DAILY 30 Days #30 tab Physician Discharge Instructions: Physician discharge instructions: Patient presented with dizziness associated with nausea/vomiting following dental tooth extraction secondary to peripheral vertigo and possibly ingesting some local anesthetic. He reported inability to tolerate any PO secondary to vomiting after swallowing, and in addition, was having dizziness/vertigo with any movement of his head. He was able to tolerate PO within 24hrs of admission but continued with nausea and vertigo with any head movement. Neurology was consulted and felt this wast most typical/consistent with peripheral vertigo related to positioning during procedure. Patient reported swallowing some of the local anesthetic and developed nausea/vomiting in the recovery room, and this resolved within 24hrs of admission. CT head was negative for any acute findings. MRI was negative for acute CVA / acute process. 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 Patient was evaluated by Dr. Olguin, neurologist, who initially recommended trial of meclizine - however patient didn't feel like it helped. Dr. Olguin recommended trial of prednisone taper as some inflammation may be contributing. The following day, patient was feeling much better, sitting up without vertigo, eating without issue. Patient was deemed stable for discharge with 6 more days of prednisone taper. Patient was noted to have a mild leukocytosis this hospitalization. Suspect reactive from recent procedure vs medication side effect. No evidence of active infection. Advised to follow up with dentist for follow up after his procedure. Can finish off clindamycin prescription previously prescribed. During his hospitalization patient reportedly stopped taking his home metoprolol and xarelto on his own months ago. Counselled on importance on taking medications as prescribed unless otherwise told to by a physician to prevent further issues / complications. Advised to restart metoprolol and xarelto to which patient was agreeable to. Refills sent Medications: prednisone taper: 30 mg for 1 day, then 20 mg 2 days, then 10 mg for 3 days Refills sent for metoprolol 25 mg twice daily and xarelto 20 mg daily on discharge. Follow up: PCP 3-5 days Neurology 2-4 weeks Cardiology in 1-2 months Please call to schedule / confirm appointments Followup: SMITA ORDOÑEZ [Primary Care Provider] - Time spent managing pt's care (in minutes): 45
== END 2024-03-27 14:01 | disposition home or self-care (01) | DRG 149 ==
LOC: ER 16:46 → ERHOLD 22:47 → 2ND 03-25 00:27 → OBSVTOIN 03-25 20:36
PROVIDERS: ADMIT Internal Medicine; ATTEND Hospitalist
DX: H81.392 Other peripheral vertigo, left ear (principal); I16.0 Hypertensive urgency; I10 Essential (primary) hypertension; E11.65 Type 2 diabetes mellitus with hyperglycemia; I48.0 Paroxysmal atrial fibrillation; D72.829 Elevated white blood cell count, unspecified; J44.9 Chronic obstructive pulmonary disease, unspecified; R11.2 Nausea with vomiting, unspecified; T41.45XA Adverse effect of unspecified anesthetic, initial encounter; Z88.5 Allergy status to narcotic agent; Z11.52 Encounter for screening for COVID-19; Z79.01 Long term (current) use of anticoagulants; Z79.52 Long term (current) use of systemic steroids; Z79.84 Long term (current) use of oral hypoglycemic drugs; Z79.899 Other long term (current) drug therapy; Z87.891 Personal history of nicotine dependence
CPT/HCPCS: 0241U; 36415; 70450; 70496; 70498; 70551; 71045; 80048; 80053; 80061; 80076; 81001; 82947; 83735; 84145; 84443; 84484; 85025; 85610; 93005; 96372; 96374; 96375; 99284; J0360; J1200; J1650; J2405; J2765; J3480; J7030; J7512; J8597; Q9967